=== PATIENT | male | born 1970 | race Caucasian/White ===

== ENCOUNTER → 2019-05-31 | Outpatient (CLI) | payer BC ==
--- NOTE | 2019-05-31 15:00 | Diagnostic Imaging Report ---
INDICATION: Pain and swelling. Three views were obtained. FINDINGS: The alignment is normal. There is no fracture or dislocation. Soft tissues are unremarkable. IMPRESSION: No focal abnormality in the right elbow. There are mild degenerative changes. Dictated by: Dictated on workstation # [id number]
== END ==
LOC: RAD 14:36
PROVIDERS: ATTEND Pediatrics
DX: M19.021 Primary osteoarthritis, right elbow (principal); M10.9 Gout, unspecified
CPT/HCPCS: 73080

== ENCOUNTER → 2019-09-20 | Outpatient (CLI) | payer BC ==
--- NOTE | 2019-09-20 16:32 | Diagnostic Imaging Report ---
EXAMINATION: Left foot radiographs, 3 views. COMPARISON: None. HISTORY: 49-year-old male, left foot pain and instability. 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 Bone mineralization and alignment is unremarkable. There is no identified acute fracture. There is mild degenerative type enthesopathy at the Achilles tendon insertion. There is no identified radiopaque foreign body. There is no cortical or aggressive bone destruction. IMPRESSION: 1. No acute osseous abnormality of the left foot. Dictated by: Dictated on workstation # [id number]
== END ==
LOC: RAD 15:41
PROVIDERS: ATTEND Pediatrics
DX: M79.672 Pain in left foot (principal); M25.375 Other instability, left foot
CPT/HCPCS: 73630